=== PATIENT | male | born 1965 | race Two or more races ===

== ENCOUNTER → 2020-11-14 12:16 | Outpatient (BNVA) | payer SELFPAY | PROVIDERS: PCP Family Medicine; Visit Provider Physician Assistant Medical | DX: Z02.79 Encounter for issue of other medical certificate (principal) ==

== ENCOUNTER 2021-05-09 10:05 | Emergency (ER) | payer MEDICAID, SELFPAY ==
--- NOTE | ~2021-05-09 | XR_ITS ---
EXAMINATION: XR CHEST CLINICAL INFORMATION: Chest pain COMPARISON: None TECHNIQUE: AP portable view of the chest was obtained. FINDINGS: No significant abnormality is noted involving the heart, lungs, mediastinum, bony thorax or soft tissues. XR/XR chest 1V IMPRESSION: No acute disease.
[2021-05-09 10:15] VITALS: BP 130/92; BP 151/101; PULSE 76; PULSE 83; RESP 17; TEMP 37.1; O2SAT 97; O2SAT 98; BMI 33.3
--- NOTE | 2021-05-09 11:02 | ECG_ITS ---
Test Reason : CHEST PAIN Blood Pressure : / mmHG Vent. Rate : 075 BPM Atrial Rate : 075 BPM P-R Int : 174 ms QRS Dur : 090 ms QT Int : 392 ms P-R-T Axes : 008 024 004 degrees QTc Int : 437 ms Normal sinus rhythm Normal ECG No previous ECGs available Referred By: Generic ED Physician Electronically Signed By:TOBY FLOR MD
[2021-05-09 11:16] VITALS: BP 141/93; PULSE 69; RESP 20; O2SAT 99
[2021-05-09 11:18] LABS: MANUAL DIFF FLAG NO
[2021-05-09 11:20] LABS: Basophils Absolute Auto 0.1 X10*3/uL (0.0-0.2); Basophils Percent Auto 1.1 % (0-2); Eosinophils Absolute Auto 0.2 X10*3/uL (0.0-0.4); Eosinophils Percent Auto 3.7 % (0-4); Hematocrit 44.1 % (42-52); Imm Gran Abs Auto 0.03 X10*3/uL (0.00-0.03); Imm Gran Pct Auto 0.7 % (0.0-0.4); Lymphocytes Absolute Auto 1.5 X10*3/uL (1.2-4.9); Lymphocytes Percent Auto 33.2 % (20-40); Mean Corpuscular Hemoglobin 29.3 pg (27.0-33.0); Mean Corpuscular Volume 86.1 fL (80-98); Mean Platelet Volume 10.6 fL (9.4-12.4); Monocytes Absolute Auto 0.6 X10*3/uL (0.1-1.2); Monocytes Percent Auto 12.7 % (2-11); Neutrophils Absolute Auto 2.2 X10*3/uL (2.0-8.3); Neutrophils Percent Auto 48.6 % (45-73); Platelet Count 230 X10*3/uL (160-400); Red Blood Count 5.12 X10*6/uL (4.60-5.80); White Blood Count 4.6 X10*3/uL (4.8-10.8)
[2021-05-09 11:46] LABS: Troponin-I High Sensitivity 19.3 ng/L (<3.5-35.0)
[2021-05-09 11:48] LABS: Anion Gap 10 (12-20); Blood Urea Nitrogen 11 mg/dL (9-16); Calcium 9.4 mg/dL (8.4-10.2); Carbon Dioxide 23 mmol/L (22-29); Chloride 112 mmol/L (96-108); Creatinine Clr Calc Pharmacy 106.6; Estimated Glomerular Filt Rate > 60; Glucose Random 85 mg/dL (60-115); Sodium 141 mmol/L (135-145)
[2021-05-09 12:20] VITALS: BP 145/90; PULSE 74; RESP 20; O2SAT 99
--- NOTE | 2021-05-09 13:09 | ED.CHESTPAIN ---
HPI - Chest Pain General Chief Complaint: Chest Pain Stated Complaint: CP Time Seen by Provider: 05/09/21 12:55 Source: patient Mode of arrival: ambulatory Limitations: no limitations History of Present Illness HPI narrative: Patient presents to ED for chest pain only when he coughs, coughing, sneezing, night sweats, chills, and headache the past week. Patient states history of asthma and chest feel tight. Patient denies any swelling of lower extremities, calf pain, coughing up blood, recent long travel, recent surgery, any estrogen hormonal use. Patient was seen at the PCP today and sent to the ER for evaluation MD complaint: chest discomfort Related Data Previous Rx's Medication Instructions Recorded albuterol sulfate 2 puff INHALATION Q6H PRN #8.5 g 05/09/21 benzonatate [Tessalon Perles] 100 mg PO TID PRN #18 cap 05/09/21 prednisone 40 mg PO DAILY #10 tab 05/09/21 Allergies Allergy/AdvReac Type Severity Reaction Status Date / Time No Known Allergies Allergy Verified 05/09/21 13:00 Review of Systems Review of Systems: Yes all other systems are reviewed and are negative Constitutional: Constitutional: Reports as per HPI, Reports no additional constitutional complaints, Reports chills and Reports headache(s) Eyes: Eyes: Reports as per HPI and Reports no additional eye complaints ENT: Reports system reviewed and no additional complaints, except as documented, Reports as per HPI and Reports headache(s) Comments: Sneezing Cardiovascular: Cardiovascular: Reports as per HPI and Reports no additional cardiovascular complaints Respiratory: Respiratory: Reports as per HPI, Reports no additional respiratory complaints, Reports cough and Reports pain with cough Gastrointestinal: Gastrointestinal: Reports as per HPI and Reports no additional gastrointestinal complaints Musculoskeletal: Musculoskeletal: Reports no additional musculoskeletal complaints and Reports as per HPI Neurologic: Reports system reviewed and no additional complaints, except as documented, Reports as per HPI and Reports headache(s) Psychiatric: Psychiatric: Reports no additional psychiatric complaints and Reports as per HPI PMF Past Medical History Medical History (Updated 05/09/21 @ 16:37 by EDIL Barraza) Acid reflux Asthma HTN (hypertension) Social History Social History Smoked in Last 30 Days: No Use of substances other than those prescribed or required for medical reasons: No Advance Directives: Yes Advance Directives Information Provided: No Advance Directives on File: No Physical Exam Vital Signs: Vital Signs: Last Vital Signs Temp 99.1 F 05/09/21 15:50 Pulse 77 05/09/21 15:50 Resp 18 05/09/21 15:50 BP 130/76 05/09/21 15:50 Pulse Ox 97 05/09/21 15:50 Body Mass Index 33.3 Const: General: cooperative, healthy appearing, comfortable, no acute distress, well developed, alert, awake and Physically active Orientation/consciousness: patient oriented x3 HENMT: Head: Yes normal to inspection, Yes No palpable skull fracture present, Yes normocephalic and Yes atraumatic Eyes: General: appearance normal, both eyes and all related structures Neck: Neck: Yes normal visual inspection, Yes full ROM, Yes no lymphadenopathy, Yes no meningeal signs, Yes trachea midline, Yes supple and No tender Chest: Chest palpation & inspection: normal inspection of the chest and normal palpation of entire chest wall Resp: Effort & Inspection: normal respiratory effort and able to speak in complete sentences Auscultation: clear to auscultation bilaterally Cardio: Jugular venous distension: no JVD Heart sounds: S1 normal heart sound present and S2 normal heart sound present GI: Inspection: Yes normal to inspection and No abdominal wall ecchymosis Palpation (GI): Soft to palpation, not firm, nontender, no guarding and not rigid : General: No CVA tenderness and Yes no CVA tenderness Back/Spine/Pelvis: Back: no CVA tenderness, No CVA tenderness and No back tenderness Skin: General skin exam: no rashes or lesions noted and abnormal elasticity Neuro: General: patient oriented x3, gait normal, no meningeal signs and CN's II-XI intact bilaterally Cranial nerves: Yes CN's II-XII intact bilaterally Extrem: Other: Lower extremities negative for swelling, pitting edema, calf tenderness General: Yes normal to inspection and Yes full ROM Psych: Appearance: grossly normal, well kempt and not disheveled Course Course Course Narrative: Patient have medical workup. Patient already SUJEY. Reevaluation(s) Reevaluation #1: EKG negative for STEMI. Troponin negative. Will add BNP. Patient said receive COVID vaccine 2 weeks ago for not having UR symptoms will do COVID swab had a D-dimer. Will do repeat troponin and give albuterol and prednisone. Patient is not in any distress. Patient is not comfortable Time: 13:42 Reevaluation #2: PATIENT FEELING BETTER AFTER ALBUTEROL PREDNISONE TREATMENT. D-DIMER NEGATIVE. COVID SWAB NEGATIVE. BNP NEGATIVE. AWAITING FOR 2ND TROPONIN RESULT. BNP negative Time: 22:32 Reevaluation #3: Patient's 2nd troponin negative. Patient ready to be discharged as bronchitis/asthma Time: 16:34 MDM - Chest Pain MDM Narrative Medical decision making narrative: Bronchitis/asthma exacerbation Lab Data Result diagrams: 05/09/21 11:15 05/09/21 11:15 Labs: Lab Results 05/09/21 05/09/21 05/09/21 Range/Units 11:15 11:15 11:15 WBC 4.6 L (4.8-10.8) X10*3/uL RBC 5.12 (4.60-5.80) X10*6/uL Hgb 15.0 (14.0-18.0) g/dl Hct 44.1 (42-52) % MCV 86.1 (80-98) fL MCH 29.3 (27.0-33.0) pg MCHC 34.0 (31.0-36.0) g/dl RDW 13.0 (11.0-16.0) % Plt Count 230 (160-400) X10*3/uL MPV 10.6 (9.4-12.4) fL Immature Gran % (Auto) 0.7 H (0.0-0.4) % Neut % (Auto) 48.6 (45-73) % Lymph % (Auto) 33.2 (20-40) % [place] % (Auto) 12.7 H (2-11) % Eos % (Auto) 3.7 (0-4) % Baso % (Auto) 1.1 (0-2) % Lymph # (Auto) 1.5 (1.2-4.9) X10*3/uL [place] # (Auto) 0.6 (0.1-1.2) X10*3/uL Eos # (Auto) 0.2 (0.0-0.4) X10*3/uL Baso # (Auto) 0.1 (0.0-0.2) X10*3/uL Abs Immat Gran (auto) 0.03 (0.00-0.03) X10*3/uL Absolute Neuts (auto) 2.2 (2.0-8.3) X10*3/uL Absolute Nucleated RBC 0.000 (0.0-0.012) X10*3/uL Nucleated RBC % (auto) 0.0 (0.0-0.2) /100WBC PT 12.4 (10.8-13.0) SEC INR 1.0 (0.9-1.1) APTT 38.1 H (24.1-38.0) SEC D-Dimer < 200 NG/ML Hold Blue Top SEE NOTE Sodium 141 (135-145) mmol/L Potassium 4.0 (3.3-5.1) mmol/L Chloride 112 H (96-108) mmol/L Carbon Dioxide 23 (22-29) mmol/L Anion Gap 10 L (12-20) BUN 11 (9-16) mg/dL Creatinine 0.82 (0.5-1.4) mg/dL Estim Creat Clear Calc 106.6 Estimated GFR > 60 Random Glucose 85 (60-115) mg/dL Calcium 9.4 (8.4-10.2) mg/dL Troponin I High Sens (<3.5-35.0) ng/L B-Natriuretic Peptide (<100) pg/mL Coronavirus (PCR) (Negative) Influenza Type A (PCR) (Negative) Influenza Type B (PCR) (Negative) RSV RNA Qual (PCR) (Negative) 05/09/21 05/09/21 05/09/21 Range/Units 11:15 13:12 14:33 WBC (4.8-10.8) X10*3/uL RBC (4.60-5.80) X10*6/uL Hgb (14.0-18.0) g/dl Hct (42-52) % MCV (80-98) fL MCH (27.0-33.0) pg MCHC (31.0-36.0) g/dl RDW (11.0-16.0) % Plt Count (160-400) X10*3/uL MPV (9.4-12.4) fL Immature Gran % (Auto) (0.0-0.4) % Neut % (Auto) (45-73) % Lymph % (Auto) (20-40) % [place] % (Auto) (2-11) % Eos % (Auto) (0-4) % Baso % (Auto) (0-2) % Lymph # (Auto) (1.2-4.9) X10*3/uL [place] # (Auto) (0.1-1.2) X10*3/uL Eos # (Auto) (0.0-0.4) X10*3/uL Baso # (Auto) (0.0-0.2) X10*3/uL Abs Immat Gran (auto) (0.00-0.03) X10*3/uL Absolute Neuts (auto) (2.0-8.3) X10*3/uL Absolute Nucleated RBC (0.0-0.012) X10*3/uL Nucleated RBC % (auto) (0.0-0.2) /100WBC PT (10.8-13.0) SEC INR (0.9-1.1) APTT (24.1-38.0) SEC D-Dimer NG/ML Hold Blue Top Sodium (135-145) mmol/L Potassium (3.3-5.1) mmol/L Chloride (96-108) mmol/L Carbon Dioxide (22-29) mmol/L Anion Gap (12-20) BUN (9-16) mg/dL Creatinine (0.5-1.4) mg/dL Estim Creat Clear Calc Estimated GFR Random Glucose (60-115) mg/dL Calcium (8.4-10.2) mg/dL Troponin I High Sens 19.3 19.3 (<3.5-35.0) ng/L B-Natriuretic Peptide < 10 (<100) pg/mL Coronavirus (PCR) NEGATIVE (Negative) Influenza Type A (PCR) NEGATIVE (Negative) Influenza Type B (PCR) NEGATIVE (Negative) RSV RNA Qual (PCR) NEGATIVE (Negative) ECG Data ECG #1: Interpretation: Normal sinus rhythm. Normal EKG. Negative STEMI. Reticular rate 75. Pr interval 174. QRS 90. QTC 437. Discharge Plan Discharge Clinical Impression: Asthma Patient Disposition: Home, Self-Care Instructions: Asthma (ED) Additional Instructions: Return to the ED for any chest pain, shortness of breath, swelling of lower extremities, calf pain, coughing up blood, fever, chills, weakness, dizziness, headache, slurred speech, or any other concerning symptoms. Please follow-up with the PCP. EKG negative for heart attack. Troponin blood test came back normal. D-dimer came back negative. Chest x-ray negative for pneumonia. COVID swab negative. Blood, normal. Please follow-up with your PCP Prescriptions: New albuterol sulfate 90 mcg/actuation HFA aerosol inhaler 2 puff inhalation Q6H PRN (Reason: asthma) Qty: 8.5 RF: 0 prednisone 20 mg tablet 40 mg PO DAILY Qty: 10 RF: 0 benzonatate [Tessalon Perles] 100 mg capsule 100 mg PO TID PRN (Reason: cough) Qty: 18 RF: 0 Stand Alone Forms: Work/School Release Interventions: ED Discharge Assessment Last Done: 05/09/21 16:44 Discharge Date/Time: 05/09/21 16:47 Print Language: Hungarian
[2021-05-09 13:26] LABS: Prothrombin Time 12.4 SEC (10.8-13.0)
[2021-05-09 13:28] LABS: Partial Thromboplastin Time 38.1 SEC (24.1-38.0)
[2021-05-09] MEDS: predniSONE 20 MG TABLET 60 MG PO (13:35)
[2021-05-09 13:39] VITALS: BP 140/89; PULSE 70; RESP 18; TEMP 37.4; O2SAT 98
[2021-05-09 13:41] LABS: B Type Natriuretic Peptide < 10 pg/mL (<100)
[2021-05-09 13:56] LABS: D Dimer < 200 NG/ML
[2021-05-09 13:58] LABS: Influenza A PCR NEGATIVE (Negative); Influenza B PCR NEGATIVE (Negative); Resp Syncy Virus RNA Qual PCR NEGATIVE (Negative); SARS COV2 PCR INHOUSE NEGATIVE (Negative)
[2021-05-09] MEDS: Albuterol/Iprat 2.5/0.5MG 3 ML AMPUL.NEB INHALE (14:04)
[2021-05-09 14:05] VITALS: PULSE 71; O2SAT 98
[2021-05-09 15:13] LABS: Troponin-I High Sensitivity 19.3 ng/L (<3.5-35.0)
[2021-05-09 15:50] VITALS: BP 130/76; PULSE 77; RESP 18; TEMP 37.3; O2SAT 97
== END 2021-05-09 16:47 | disposition home or self-care (01) ==
PROVIDERS: Physician Assistant; Emergency Provider Emergency Medicine Emergency Medical Services
DX: J45.909 Unspecified asthma, uncomplicated (principal); R07.9 Chest pain, unspecified; Z20.822 Contact with and (suspected) exposure to COVID-19; I10 Essential (primary) hypertension
CPT/HCPCS: 0241U; 36415; 71045; 80048; 83880; 84484; 85025; 85379; 85610; 85730; 93005; 94640; 99284; 99285

== ENCOUNTER 2021-10-01 16:15 | Observation (INO) | payer MEDICAID, SELFPAY ==
[2021-10-01] VITALS (7 sets, daily range): BP systolic 135–152; BP diastolic 80–93; PULSE 86–108; RESP 14–20; TEMP 36.3–36.9; O2SAT 96–98; BMI 34.1; BMI 34.6
--- NOTE | 2021-10-01 16:28 | ED.CHESTPAIN ---
HPI - Chest Pain General Chief Complaint: Chest Pain Stated Complaint: chest pain Time Seen by Provider: 10/01/21 16:23 Related Data Home Medications Medication Instructions Recorded Confirmed amitriptyline 25 mg tablet 1 tab PO BEDTIME PRN 10/01/21 10/01/21 escitalopram oxalate 5 mg tablet 1 tab PO DAILY 10/01/21 10/01/21 lisinopril 10 1 tab PO DAILY 10/01/21 10/01/21 mg-hydrochlorothiazide 12.5 mg tablet pantoprazole 40 mg tablet,delayed 1 tab PO DAILY 10/01/21 10/01/21 release Previous Rx's Medication Instructions Recorded albuterol sulfate 90 mcg/actuation 2 puff INHALATION Q6H PRN #8.5 g 05/09/21 aerosol inhaler Allergies Allergy/AdvReac Type Severity Reaction Status Date / Time No Known Allergies Allergy Verified 05/09/21 13:00 [facility] Past Medical History Medical History Acid reflux Asthma HTN (hypertension) Social History Social History Household Members: Family Housing: House Do you presently have visiting nurse or other home services: No Alcohol intake: never Patient Tobacco Use Status: Former Tobacco user Use of substances other than those prescribed or required for medical reasons: No Have you been hit, kicked, punched, or otherwise hurt by someone within the past year? If so, by whom?: No Do you feel safe in your current relationship?: Yes Is there a partner from a previous relationship who is making you feel unsafe now?: No Are you made to feel afraid or neglected: No Advance Directives: No Advance Directives Information Provided: No Do you have thoughts of harming others: None Do you have a plan to hurt others: No Plan Recently lost weight without trying: Yes How much weight loss: 2-13 pounds Eating poorly because of decreased appetite: No Nutrition screen score: 3 Nutrition Risks: No Nutritional Risk Poor oral hygiene: No Physical Exam Vital Signs: Vital Signs: Last Vital Signs Temp 97.4 F 10/01/21 23:03 Pulse 95 10/01/21 23:03 Resp 18 10/01/21 23:03 BP 138/83 10/01/21 23:03 Pulse Ox 96 10/01/21 23:03 Body Mass Index 34.1 MDM - Chest Pain Lab Data Result diagrams: 10/01/21 17:03 10/01/21 17:03 Labs: Lab Results 10/01/21 10/01/21 10/01/21 Range/Units 17:03 17:03 17:03 WBC 5.5 (4.8-10.8) X10*3/uL RBC 4.95 (4.60-5.80) X10*6/uL Hgb 14.8 (14.0-18.0) g/dl Hct 42.7 (42.0-52.0) % MCV 86.3 (80.0-98.0) fL MCH 29.9 (27.0-33.0) pg MCHC 34.7 (31.0-36.0) g/dl RDW 12.4 (11.0-16.0) % Plt Count 218 (160-400) X10*3/uL MPV 10.3 (9.4-12.4) fL Immature Gran % (Auto) 0.4 (0.0-0.4) % Neut % (Auto) 59.7 (45-73) % Lymph % (Auto) 30.2 (20-40) % [place] % (Auto) 7.9 (2-11) % Eos % (Auto) 1.3 (0-4) % Baso % (Auto) 0.5 (0-2) % Lymph # (Auto) 1.7 (1.2-4.9) X10*3/uL [place] # (Auto) 0.4 (0.1-1.2) X10*3/uL Eos # (Auto) 0.1 (0.0-0.4) X10*3/uL Baso # (Auto) 0.0 (0.0-0.2) X10*3/uL Abs Immat Gran (auto) 0.02 (0.00-0.03) X10*3/uL Absolute Neuts (auto) 3.26 (2.0-8.3) x10*3/uL Absolute Nucleated RBC 0.000 (0.0-0.012) X10*3/uL Nucleated RBC % (auto) 0.0 (0.0-0.2) /100WBC PT (9.9-13.0) SEC INR (0.9-1.1) D-Dimer NG/ML Sodium 141 (135-145) mmol/L Potassium 4.0 (3.3-5.1) mmol/L Chloride 110 H (96-108) mmol/L Carbon Dioxide 23 (22-29) mmol/L Anion Gap 12 (12-20) BUN 13 (9-16) mg/dL Creatinine 0.88 (0.5-1.4) mg/dL Estim Creat Clear Calc 100.5 Estimated GFR > 60 Random Glucose 83 (60-115) mg/dL Calcium 9.2 (8.4-10.2) mg/dL Total Bilirubin 0.4 (0.0-1.0) mg/dL AST 18 (5-37) U/L ALT 25 (0-40) U/L Alkaline Phosphatase 99 (39-117) U/L Troponin I High Sens 20.3 (<3.5-35.0) ng/L Total Protein 6.8 (6.5-8.0) g/dL Albumin 4.3 (3.5-5.0) g/dL COVID-19 ([facility]) (Negative) COVID-19 Clin Com 10/01/21 10/01/21 10/01/21 Range/Units 17:03 17:03 19:05 WBC (4.8-10.8) X10*3/uL RBC (4.60-5.80) X10*6/uL Hgb (14.0-18.0) g/dl Hct (42.0-52.0) % MCV (80.0-98.0) fL MCH (27.0-33.0) pg MCHC (31.0-36.0) g/dl RDW (11.0-16.0) % Plt Count (160-400) X10*3/uL MPV (9.4-12.4) fL Immature Gran % (Auto) (0.0-0.4) % Neut % (Auto) (45-73) % Lymph % (Auto) (20-40) % [place] % (Auto) (2-11) % Eos % (Auto) (0-4) % Baso % (Auto) (0-2) % Lymph # (Auto) (1.2-4.9) X10*3/uL [place] # (Auto) (0.1-1.2) X10*3/uL Eos # (Auto) (0.0-0.4) X10*3/uL Baso # (Auto) (0.0-0.2) X10*3/uL Abs Immat Gran (auto) (0.00-0.03) X10*3/uL Absolute Neuts (auto) (2.0-8.3) x10*3/uL Absolute Nucleated RBC (0.0-0.012) X10*3/uL Nucleated RBC % (auto) (0.0-0.2) /100WBC PT 12.8 (9.9-13.0) SEC INR 1.1 (0.9-1.1) D-Dimer < 200 NG/ML Sodium (135-145) mmol/L Potassium (3.3-5.1) mmol/L Chloride (96-108) mmol/L Carbon Dioxide (22-29) mmol/L Anion Gap (12-20) BUN (9-16) mg/dL Creatinine (0.5-1.4) mg/dL Estim Creat Clear Calc Estimated GFR Random Glucose (60-115) mg/dL Calcium (8.4-10.2) mg/dL Total Bilirubin (0.0-1.0) mg/dL AST (5-37) U/L ALT (0-40) U/L Alkaline Phosphatase (39-117) U/L Troponin I High Sens 17.2 (<3.5-35.0) ng/L Total Protein (6.5-8.0) g/dL Albumin (3.5-5.0) g/dL COVID-19 ([facility]BERLY) Negative (Negative) COVID-19 Clin Com See Note Discharge Plan Discharge Clinical Impression: Chest pain Patient Disposition: Admitted As Inpatient Interventions: Admission Worksheet (ED) Last Done: 10/01/21 22:15 Discharge Date/Time: 10/01/21 22:15
--- NOTE | 2021-10-01 16:44 | ED.CHESTPAIN ---
HPI - Chest Pain General Chief Complaint: Chest Pain Stated Complaint: chest pain Time Seen by Provider: 10/01/21 16:23 Source: patient and old records reviewed History of Present Illness HPI narrative: Patient with a history of hypertension and obesity with BMI of 34.1 complaining of chest pain which started today. He typically takes amlodipine and lisinopril for his high blood pressure but ran out. Last dose was yesterday. Today after waking up he developed substernal pressure. It radiates to his back. No change with movement. Positive dyspnea on exertion. He was diaphoretic in his physician office. He with his PCP office today and he was sent to the emergency department after receiving nitroglycerin and aspirin. He states he is not had a history of chest pain like this before. He was seen for chest pain in April, but that was associated with an asthma exacerbation and was sharp in hurt when he breathes. This time it is pressure-like sensation and no change with inspiration. He denies asthma like symptoms. He does complain of dyspnea on exertion which is unusual. No recent illnesses. No change in diet or medication other than running out of his antihypertensives yesterday. His last LDL cholesterol was 124 No other significant cardiac risk factors in that he does not have a family history of cardiac disease. He is not a smoker. No cocaine use disorder. After nitroglycerin from his PCP office, he states the pain improved slightly from a 6 down to a 5. Related Data Previous Rx's Medication Instructions Recorded albuterol sulfate 90 mcg/actuation 2 puff INHALATION Q6H PRN #8.5 g 05/09/21 aerosol inhaler benzonatate 100 mg capsule 100 mg PO TID PRN #18 cap 05/09/21 ([facility] Klein) prednisone 20 mg tablet 40 mg PO DAILY #10 tab 05/09/21 Allergies Allergy/AdvReac Type Severity Reaction Status Date / Time No Known Allergies Allergy Verified 05/09/21 13:00 Review of Systems Constitutional: Comments: No fevers or chills Cardiovascular: Comments: Chest pain is described Respiratory: Comments: Dyspnea as described. No wheezes or cough Gastrointestinal: Comments: No nausea vomiting Musculoskeletal: Comments: No calf pain or pedal edema Integumentary/Breasts: Comments: No rash Neurologic: Comments: No weakness numbness or paresthesias [facility] Past Medical History Medical History (Updated 10/01/21 @ 17:46 by Jerson Davison MD) Acid reflux Asthma HTN (hypertension) Social History Social History Advance Directives: No Advance Directives Information Provided: No Physical Exam Vital Signs: Vital Signs: Last Vital Signs Temp 97.8 F 10/01/21 16:27 Pulse 86 10/01/21 17:30 Resp 14 10/01/21 16:27 BP 136/87 10/01/21 17:30 Pulse Ox 98 10/01/21 16:27 Body Mass Index 34.1 Const: Other: Awake and alert no acute distress Neck: Other: No JVD Chest: Other: Chest wall nontender Resp: Other: Clear and equal bilaterally without wheezes rales or rhonchi Cardio: Other: Regular rate and rhythm without murmurs rubs or gallops GI: Other: Soft nontender nondistended Skin: Other: Warm pink and dry. No diaphoresis at the moment Neuro: Other: No focal neuro deficits Course Course Course Narrative: Chest pain with a Heart score of 4 secondary to risk factors of hypertension, obesity, hypercholesterolemia. EKG normal sinus rhythm without ischemic changes. Patient is already received aspirin prior to arrival. Will treat here with nitroglycerin ointment. Morphine for pain Await labs 5:45 p.m.. Patient now pain free after medication. Repeat EKG ordered. Lab work is so far reassuring with his 1st troponin at 20. Given heart score of 4, will hospitalized for further workup MDM - Chest Pain Lab Data Result diagrams: 10/01/21 17:03 10/01/21 17:03 Labs: Lab Results 10/01/21 10/01/21 10/01/21 Range/Units 17:03 17:03 17:03 WBC 5.5 (4.8-10.8) X10*3/uL RBC 4.95 (4.60-5.80) X10*6/uL Hgb 14.8 (14.0-18.0) g/dl Hct 42.7 (42.0-52.0) % MCV 86.3 (80.0-98.0) fL MCH 29.9 (27.0-33.0) pg MCHC 34.7 (31.0-36.0) g/dl RDW 12.4 (11.0-16.0) % Plt Count 218 (160-400) X10*3/uL MPV 10.3 (9.4-12.4) fL Immature Gran % (Auto) 0.4 (0.0-0.4) % Neut % (Auto) 59.7 (45-73) % Lymph % (Auto) 30.2 (20-40) % [place] % (Auto) 7.9 (2-11) % Eos % (Auto) 1.3 (0-4) % Baso % (Auto) 0.5 (0-2) % Lymph # (Auto) 1.7 (1.2-4.9) X10*3/uL [place] # (Auto) 0.4 (0.1-1.2) X10*3/uL Eos # (Auto) 0.1 (0.0-0.4) X10*3/uL Baso # (Auto) 0.0 (0.0-0.2) X10*3/uL Abs Immat Gran (auto) 0.02 (0.00-0.03) X10*3/uL Absolute Neuts (auto) 3.26 (2.0-8.3) x10*3/uL Absolute Nucleated RBC 0.000 (0.0-0.012) X10*3/uL Nucleated RBC % (auto) 0.0 (0.0-0.2) /100WBC PT (9.9-13.0) SEC INR (0.9-1.1) D-Dimer NG/ML Sodium 141 (135-145) mmol/L Potassium 4.0 (3.3-5.1) mmol/L Chloride 110 H (96-108) mmol/L Carbon Dioxide 23 (22-29) mmol/L Anion Gap 12 (12-20) BUN 13 (9-16) mg/dL Creatinine 0.88 (0.5-1.4) mg/dL Estim Creat Clear Calc 100.5 Estimated GFR > 60 Random Glucose 83 (60-115) mg/dL Calcium 9.2 (8.4-10.2) mg/dL Total Bilirubin 0.4 (0.0-1.0) mg/dL AST 18 (5-37) U/L ALT 25 (0-40) U/L Alkaline Phosphatase 99 (39-117) U/L Troponin I High Sens 20.3 (<3.5-35.0) ng/L Total Protein 6.8 (6.5-8.0) g/dL Albumin 4.3 (3.5-5.0) g/dL COVID-19 ([facility]) (Negative) COVID-19 Clin Com 10/01/21 10/01/21 Range/Units 17:03 17:03 WBC (4.8-10.8) X10*3/uL RBC (4.60-5.80) X10*6/uL Hgb (14.0-18.0) g/dl Hct (42.0-52.0) % MCV (80.0-98.0) fL MCH (27.0-33.0) pg MCHC (31.0-36.0) g/dl RDW (11.0-16.0) % Plt Count (160-400) X10*3/uL MPV (9.4-12.4) fL Immature Gran % (Auto) (0.0-0.4) % Neut % (Auto) (45-73) % Lymph % (Auto) (20-40) % [place] % (Auto) (2-11) % Eos % (Auto) (0-4) % Baso % (Auto) (0-2) % Lymph # (Auto) (1.2-4.9) X10*3/uL [place] # (Auto) (0.1-1.2) X10*3/uL Eos # (Auto) (0.0-0.4) X10*3/uL Baso # (Auto) (0.0-0.2) X10*3/uL Abs Immat Gran (auto) (0.00-0.03) X10*3/uL Absolute Neuts (auto) (2.0-8.3) x10*3/uL Absolute Nucleated RBC (0.0-0.012) X10*3/uL Nucleated RBC % (auto) (0.0-0.2) /100WBC PT 12.8 (9.9-13.0) SEC INR 1.1 (0.9-1.1) D-Dimer < 200 NG/ML Sodium (135-145) mmol/L Potassium (3.3-5.1) mmol/L Chloride (96-108) mmol/L Carbon Dioxide (22-29) mmol/L Anion Gap (12-20) BUN (9-16) mg/dL Creatinine (0.5-1.4) mg/dL Estim Creat Clear Calc Estimated GFR Random Glucose (60-115) mg/dL Calcium (8.4-10.2) mg/dL Total Bilirubin (0.0-1.0) mg/dL AST (5-37) U/L ALT (0-40) U/L Alkaline Phosphatase (39-117) U/L Troponin I High Sens (<3.5-35.0) ng/L Total Protein (6.5-8.0) g/dL Albumin (3.5-5.0) g/dL COVID-19 ([facility]) Negative (Negative) COVID-19 Clin Com See Note Scores Heart Score History: -1- moderately suspicious ECG: -0- normal Age: -1- >45 - <65 Risk factory: -2- 3 or more risk factors or treated atherosclerosis Discharge Plan Discharge Patient Disposition: Admitted As Inpatient Prescriptions: No Action albuterol sulfate 90 mcg/actuation HFA aerosol inhaler 2 puff inhalation Q6H PRN (Reason: asthma) Qty: 8.5 RF: 0 prednisone 20 mg tablet 40 mg PO DAILY Qty: 10 RF: 0 benzonatate [Tessalon Perles] 100 mg capsule 100 mg PO TID PRN (Reason: cough) Qty: 18 RF: 0
--- NOTE | 2021-10-01 17:03 | PC.NURSE ---
iv inserted, labs drawn, ekg performed, environmental monitoring specialist applied
[2021-10-01 17:09] LABS: MANUAL DIFF FLAG NO
[2021-10-01 17:11] LABS: Basophils Percent Auto 0.5 % (0-2); Eosinophils Absolute Auto 0.1 X10*3/uL (0.0-0.4); Eosinophils Percent Auto 1.3 % (0-4); Hematocrit 42.7 % (42.0-52.0); Hemoglobin 14.8 g/dl (14.0-18.0); Imm Gran Abs Auto 0.02 X10*3/uL (0.00-0.03); Imm Gran Pct Auto 0.4 % (0.0-0.4); Lymphocytes Absolute Auto 1.7 X10*3/uL (1.2-4.9); Lymphocytes Percent Auto 30.2 % (20-40); Mean Corpuscular HGB Conc 34.7 g/dl (31.0-36.0); Mean Corpuscular Hemoglobin 29.9 pg (27.0-33.0); Mean Corpuscular Volume 86.3 fL (80.0-98.0); Mean Platelet Volume 10.3 fL (9.4-12.4); Monocytes Absolute Auto 0.4 X10*3/uL (0.1-1.2); Monocytes Percent Auto 7.9 % (2-11); Neutrophils Absolute Auto 3.26 x10*3/uL (2.0-8.3); Neutrophils Percent Auto 59.7 % (45-73); Platelet Count 218 X10*3/uL (160-400); Red Blood Count 4.95 X10*6/uL (4.60-5.80); Red Cell Distribution Width 12.4 % (11.0-16.0); White Blood Count 5.5 X10*3/uL (4.8-10.8)
[2021-10-01 17:16] LABS: INTERNATIONAL NORM RATIO 1.1 (0.9-1.1); Prothrombin Time 12.8 SEC (9.9-13.0)
[2021-10-01 17:22] LABS: D Dimer < 200 NG/ML
[2021-10-01] MEDS: Morphine Sulfate 4 MG/ML CARTRIDGE IVPUSH (17:28)
[2021-10-01] MEDS: Nitroglycerin 2 % Oint 1 GM Packet 1 INCH TRANSDERMA (17:29)
[2021-10-01 17:30] LABS: Alanine Aminotransferase 25 U/L (0-40); Albumin Level 4.3 g/dL (3.5-5.0); Alkaline Phosphatase 99 U/L (39-117); Anion Gap 12 (12-20); Aspartate Amino Transferase 18 U/L (5-37); Bilirubin Total 0.4 mg/dL (0.0-1.0); Blood Urea Nitrogen 13 mg/dL (9-16); COVID-19 Test Negative (Negative); Calcium 9.2 mg/dL (8.4-10.2); Carbon Dioxide 23 mmol/L (22-29); Chloride 110 mmol/L (96-108); Creatinine Clr Calc Pharmacy 100.5; Estimated Glomerular Filt Rate > 60; Glucose Random 83 mg/dL (60-115); Sodium 141 mmol/L (135-145); Total Protein 6.8 g/dL (6.5-8.0)
[2021-10-01] MEDS: amLODIPine Besylate 10 MG TABLET PO (17:30)
[2021-10-01] MEDS: lisinopriL 10 MG TABLET PO (17:30)
--- NOTE | 2021-10-01 17:30 | PC.NURSE ---
patient medicated per order
[2021-10-01 17:33] LABS: Troponin-I High Sensitivity 20.3 ng/L (<3.5-35.0)
--- NOTE | 2021-10-01 17:44 | ECG_ITS ---
Test Reason : CHEST PAIN Blood Pressure : / mmHG Vent. Rate : 088 BPM Atrial Rate : 088 BPM P-R Int : 168 ms QRS Dur : 106 ms QT Int : 378 ms P-R-T Axes : 014 030 -10 degrees QTc Int : 457 ms Normal sinus rhythm Nonspecific T wave abnormality Abnormal ECG When compared with ECG of 09-MAY-2021 11:08, T wave inversion more evident in Inferior leads Referred By: Jerson Davison Electronically Signed By:BRANDON COX MD
[2021-10-01 19:29] LABS: Troponin-I High Sensitivity 17.2 ng/L (<3.5-35.0)
--- NOTE | 2021-10-01 19:31 | PHA.MEDREC ---
Pharmacy Consult ? Medication Reconciliation Pharmacy has completed the medication reconciliation. Patient has a paper that reports he takes amlodipine and lisinopril. Per the claim history patient is taking lisinopril-HCTZ that was last filled 08/28/2021 x 30 days. He reports he was suppose to get a refill of all his medications at [facility] but was sent here instead. Sumaya Aguirre, DerekD
--- NOTE | 2021-10-01 20:13 | P.HPHOSP_ITS ---
History of Present Illness Date of Service: 10/01/21 Chief Complaint: chest pain 55-year-old male with past medical history of hypertension, asthma and GERD presents to the hospital with complaints of chest pain. Patient reports that the pain started in the morning, midsternal, radiating to the back, 7/10, heavy/ squeezing in sensation, constant, occurred while he was visiting his doctor's office, improved with nitro and morphine, not relieved by rest, no exacerbating factors. Associated with palpitations and some shortness of breath as well as diaphoresis. Patient also developed a slight headache but has not resolved. Denies any cough, sputum production, no fever or chills, no abdominal pain nausea or vomiting, he denies any urinary symptoms and no lower extremity edema. No numbness with tingling or weakness. No significant abnormal vitals Labs are significant for troponin of 20 that decreased to 17.2 with no other significant abnormalities, EKG shows normal sinus rhythm with no significant ST T wave abnormality except for a T-wave inversion in leads III otherwise no significant change when compared to previous EKG from April Given the typical nature of his chest pain patient will be admitted for observation Review of Systems Review of Systems: Yes all other systems are reviewed and are negative [facility] Medical History Acid reflux Asthma HTN (hypertension) Pertinent family history: Patient has been in foster care and does not know his biological parents Surgical History (Updated 10/02/21 @ 05:55 by Jose Manuel Christy MD) No pertinent past surgical history Social History Household Members: Family Housing: House Do you presently have visiting nurse or other home services: No Alcohol intake: never Patient Tobacco Use Status: Former Tobacco user Use of substances other than those prescribed or required for medical reasons: No Currently Displaying Signs/Symptoms of Drug Intoxication Withdrawal: No Have you been hit, kicked, punched, or otherwise hurt by someone within the past year? If so, by whom?: No Do you feel safe in your current relationship?: Yes Is there a partner from a previous relationship who is making you feel unsafe now?: No Are you made to feel afraid or neglected: No Advance Directives: No Advance Directives Information Provided: No Do you have thoughts of harming others: None Do you have a plan to hurt others: No Plan Recently lost weight without trying: Yes How much weight loss: 2-13 pounds Eating poorly because of decreased appetite: No Nutrition screen score: 3 Nutrition Risks: No Nutritional Risk Poor oral hygiene: No Meds Allergies Allergy/AdvReac Type Severity Reaction Status Date / Time No Known Allergies Allergy Verified 05/09/21 13:00 Active Medications: Current Medications Pharmacy Consult (Consult Rx Perform Med Rec) 1 each MISCELLANE ONCE PRN PRN Reason: Consult order Home Medications Medication Instructions Recorded Confirmed Last Taken Type amitriptyline 25 mg tablet 1 tab PO BEDTIME PRN 10/01/21 10/01/21 Unknown History escitalopram oxalate 5 mg tablet 1 tab PO DAILY 10/01/21 10/01/21 Unknown History lisinopril 10 1 tab PO DAILY 10/01/21 10/01/21 Unknown History mg-hydrochlorothiazide 12.5 mg tablet pantoprazole 40 mg tablet,delayed 1 tab PO DAILY 10/01/21 10/01/21 Unknown History release Physical Exam Vital Signs and Narrative: Vital Signs: Last Vital Signs Temp 98.4 F 10/01/21 18:05 Pulse 88 10/01/21 18:05 Resp 16 10/01/21 18:05 BP 139/85 10/01/21 18:05 Pulse Ox 98 10/01/21 18:05 Body Mass Index 34.1 Const: General: cooperative and no acute distress Orientation/consc iousness: patient oriented x3 Eyes: General: appearance normal, both eyes and all related structures Resp: Effort & Inspection: normal respiratory effort Auscultation: clear to auscultation bilaterally Cardio: Rate: regular rate Rhythm: regular rhythm GI: Palpation (GI): Soft to palpation Auscultation: normal bowel sounds Skin: General skin exam: no rashes or lesions noted Neuro: General: patient oriented x3 Cognition (Neuro): normal cognition Extrem: General: Yes normal to inspection and Yes no pedal edema Results Labs CBC and Chem 7: 10/01/21 17:03 10/01/21 17:03 Labs: Laboratory Results - last 24 hr 10/01/21 10/01/21 10/01/21 17:03 17:03 17:03 MCV 86.3 MCH 29.9 MCHC 34.7 RDW 12.4 Plt Count 218 MPV 10.3 Immature Gran % (Auto) 0.4 Neut % (Auto) 59.7 Lymph % (Auto) 30.2 [place] % (Auto) 7.9 Eos % (Auto) 1.3 Baso % (Auto) 0.5 Lymph # (Auto) 1.7 [place] # (Auto) 0.4 Eos # (Auto) 0.1 Baso # (Auto) 0.0 Abs Immat Gran (auto) 0.02 Absolute Neuts (auto) 3.26 Absolute Nucleated RBC 0.000 Nucleated RBC % (auto) 0.0 PT INR D-Dimer Anion Gap 12 Estim Creat Clear Calc 100.5 Estimated GFR > 60 Random Glucose 83 Calcium 9.2 Total Bilirubin 0.4 AST 18 ALT 25 Alkaline Phosphatase 99 Troponin I High Sens 20.3 Total Protein 6.8 Albumin 4.3 COVID-19 ([facility]) COVID-19 [employer] Com 10/01/21 10/01/21 10/01/21 17:03 17:03 19:05 MCV MCH MCHC RDW Plt Count MPV Immature Gran % (Auto) Neut % (Auto) Lymph % (Auto) [place] % (Auto) Eos % (Auto) Baso % (Auto) Lymph # (Auto) [place] # (Auto) Eos # (Auto) Baso # (Auto) Abs Immat Gran (auto) Absolute Neuts (auto) Absolute Nucleated RBC Nucleated RBC % (auto) PT 12.8 INR 1.1 D-Dimer < 200 Anion Gap Estim Creat Clear Calc Estimated GFR Random Glucose Calcium Total Bilirubin AST ALT Alkaline Phosphatase Troponin I High Sens 17.2 Total Protein Albumin COVID-19 ([facility]) Negative COVID-19 Clin Com See Note Assessment and Plan (1) Chest pain: Status: Acute 55-year-old male with past medical history of hypertension who presents to the hospital with complaints of chest pain # chest pain - has typical characteristics of cardiac pain - troponin negative - no EKG changes suggestive of ACS - heart score of 4 - Risk factors for cardiac disease include hypertension, obesity, hyperlipidemia - will admit to telemetry for observation - consult Cardiology for any further recommendation # hypertension - stable - continue lisinopril/hydrochlorothiazide # GERD - continue pantoprazole # asthma - stable - continue rescue inhaler DVT prophylaxis: Lovenox Quality Stroke Does the patient have a stroke diagnosis?: No VTE Prior VTE?: No VTE Risk Level:: Medical - moderate - high VTE Device Contraindication: Treatment Not Indicated VTE Drug Contraindication: N/A - Med Ordered
[2021-10-01] MEDS: Enoxaparin Sodium 40 MG/0.4 ML SYRINGE SUBCUT (22:34)
[2021-10-01] MEDS: 0.9 % Sodium Chloride Flush 3 ML SYRINGE IVFLUSH (22:37)
--- NOTE | 2021-10-02 | CA_ITS ---
Acquisition Time: 2021-10-02 10:37:12 Total Exercise Time: 00:07:44 Test Indications: CP Medications: SEE CHART Protocol: KOLBY Max HR: 146 BPM 87% of Pred: 166 BPM Max BP: 154/058 mmHG Max Work Load: 9.6 METS Exercise stress test with exercise 7 min 44 sec of Kolby protocol, with moderate shortness of breath and mild pressure in his chest, which he states is different from the chest discomfort that brought him into the hospital, without arrythmia, with normotensive response to exercise, without EKG changes meeting criteria for ischemia. In recovery his symptoms resolved. Test reviewed with Dr Bergeron. Referred By: Ronny Bergeron Overread By: JENNIFER GEORGES
[2021-10-02 03:29] VITALS: BP 113/70; PULSE 69; RESP 18; TEMP 36.4; O2SAT 98
[2021-10-02 05:58] VITALS: BMI 34.6
[2021-10-02] MEDS: Omeprazole 20 MG CAPSULE.DR PO (06:08)
[2021-10-02 06:42] LABS: MANUAL DIFF FLAG NO
[2021-10-02 06:45] LABS: Basophils Percent Auto 0.7 % (0-2); Eosinophils Absolute Auto 0.2 X10*3/uL (0.0-0.4); Eosinophils Percent Auto 2.9 % (0-4); Hematocrit 40.5 % (42.0-52.0); Hemoglobin 13.8 g/dl (14.0-18.0); Imm Gran Abs Auto 0.04 X10*3/uL (0.00-0.03); Imm Gran Pct Auto 0.7 % (0.0-0.4); Lymphocytes Absolute Auto 2.8 X10*3/uL (1.2-4.9); Mean Corpuscular HGB Conc 34.1 g/dl (31.0-36.0); Mean Corpuscular Hemoglobin 29.9 pg (27.0-33.0); Mean Corpuscular Volume 87.9 fL (80.0-98.0); Mean Platelet Volume 10.5 fL (9.4-12.4); Monocytes Absolute Auto 0.5 X10*3/uL (0.1-1.2); Monocytes Percent Auto 8.6 % (2-11); Neutrophils Absolute Auto 2.27 x10*3/uL (2.0-8.3); Neutrophils Percent Auto 39.1 % (45-73); Platelet Count 207 X10*3/uL (160-400); Red Blood Count 4.61 X10*6/uL (4.60-5.80); Red Cell Distribution Width 12.8 % (11.0-16.0); White Blood Count 5.8 X10*3/uL (4.8-10.8)
[2021-10-02 07:10] LABS: Anion Gap 9 (12-20); Blood Urea Nitrogen 14 mg/dL (9-16); Calcium 8.8 mg/dL (8.4-10.2); Carbon Dioxide 27 mmol/L (22-29); Chloride 108 mmol/L (96-108); Creatinine Clr Calc Pharmacy 91.9; Estimated Glomerular Filt Rate > 60; Glucose Random 89 mg/dL (60-115); Potassium 4.2 mmol/L (3.3-5.1); Sodium 140 mmol/L (135-145)
[2021-10-02 07:13] VITALS: BP 116/74; PULSE 68; RESP 18; TEMP 36.6; O2SAT 97
--- NOTE | 2021-10-02 10:12 | MHC.CM.PN ---
pt lives c spouse in their home. he reports that he is independent in his care. his is able to help him c any needs he may have , this will include a ride home at dc. pt denies the need for vna at dc. dc plan is home no svcs. cm to cont. to follow.
--- NOTE | 2021-10-02 10:15 | P.CONCA_ITS ---
History of Present Illness History of Present Illness Date of Service: 10/02/21 Requesting physician: Jose Manuel Christy Consult reason: chest pain Chief complaint: r/o ACS Narrative: I was requested to see Guilherme in cardiology consultation today for symptoms of chest discomfort. He is a pleasant 55-year-old male with prior history of hypertension, obesity, asthma who presents to hospital with retrosternal chest discomfort. He said he was in usual state of health, woke up yesterday morning and developed retrosternal/precordial chest pain which he describes as pressure. Symptoms were significant. He however then decided to come to his primary care physician's office very an EKG which was told was abnormal he was referred to the emergency room. In emergency room the EKG shows sinus rhythm with nonspecific T-wave changes in the inferior leads. He was treated and subsequently his chest pain resolved and has remained chest pain- free at this point time. No associated nausea vomiting or diaphoresis. May have as shortness of breath. There is no wheezing or cough associated with. His troponins x2 are negative. Cardiology consult was sought due to his symptoms and possibility of acute coronary syndrome. He has had similar discomfort he said few months ago when he had come to the emergency room at that time was diagnosed with asthma. He also had ran out of his medication for blood pressure about a day ago, however recorded blood pressure with not significantly/markedly elevated. Review of Systems Constitutional: Constitutional: Reports no additional constitutional complaints Eyes: Eyes: Reports no additional eye complaints ENT: Reports system reviewed and no additional complaints, except as documented Cardiovascular: Cardiovascular: Reports chest pain, Denies lightheadedness, Denies Loss of Consciousness, Denies palpitations and Denies dyspnea Respiratory: Respiratory: Reports no additional respiratory complaints and Denies dyspnea Gastrointestinal: Gastrointestinal: Reports no additional gastrointestinal complaints Genitourinary: Genitourinary: Reports no additional male genitourinary complaints Musculoskeletal: Musculoskeletal: Reports no additional musculoskeletal complaints Integumentary/Breasts: Skin/Breast: Reports system reviewed and no additional complaints, except as docu Neurologic: Reports system reviewed and no additional complaints, except as d ocumented Psychiatric: Psychiatric: Reports no additional psychiatric complaints Endocrine: Endocrine: Reports no additional endocrine complaints and Denies palpitations Hematologic/Lymphatic: Hematologic/Lymphatic: Reports no additional hematologic/lymphatic complaints Allergic/Immunologic: Allergic/Immunologic: Reports no additional allergic/immunologic complaints [facility] Past Medical History Medical History Acid reflux Asthma HTN (hypertension) Surgical History Surgical History No pertinent past surgical history Social History Social History Household Members: Family Housing: House Do you presently have visiting nurse or other home services: No Alcohol intake: never Patient Tobacco Use Status: Former Tobacco user Use of substances other than those prescribed or required for medical reasons: No Currently Displaying Signs/Symptoms of Drug Intoxication Withdrawal: No Have you been hit, kicked, punched, or otherwise hurt by someone within the past year? If so, by whom?: No Do you feel safe in your current relationship?: Yes Is there a partner from a previous relationship who is making you feel unsafe now?: No Are you made to feel afraid or neglected: No Advance Directives: No Advance Directives Information Provided: No Do you have thoughts of harming others: None Do you have a plan to hurt others: No Plan Recently lost weight without trying: Yes How much weight loss: 2-13 pounds Eating poorly because of decreased appetite: No Nutrition screen score: 3 Nutrition Risks: No Nutritional Risk Poor oral hygiene: No service: No Current occupational status: unemployed Meds Allergies Allergy/AdvReac Type Severity Reaction Status Date / Time No Known Allergies Allergy Verified 05/09/21 13:00 Active Medications: Current Medications Acetaminophen (Acetaminophen 325 Mg Tablet) 650 mg PO Q6H PRN PRN Reason: Pain, Mild (Pain Scale 1-3) Albuterol Sulfate (Albuterol Sulfate 90 Mcg 8 Gm Inhaler) 2 puff INHALE Q6H PRN PRN Reason: asthma Amitriptyline HCl (Amitriptyline Hcl 25 Mg Tablet) 25 mg PO BEDTIME PRN PRN Reason: Anxiety Docusate Sodium (Docusate Sodium 100 Mg Capsule) 100 mg PO DAILY PRN PRN Reason: Constipation Enoxaparin Sodium (Enoxaparin Sodium 40 Mg/0.4 Ml Syringe) 40 mg SUBCUT Q24H [facility] Last Admin: 10/01/21 22:34 Dose: 40 mg Documented by: Escitalopram Oxalate (Escitalopram Oxalate 5 Mg Tablet) 5 mg PO DAILY [facility] Hydrochlorothiazide (Hydrochlorothiazide 12.5 Mg Tablet) 12.5 mg PO DAILY [facility] Lisinopril (Lisinopril 10 Mg Tablet) 10 mg PO DAILY [facility] Omeprazole (Omeprazole 20 Mg Capsule.Dr) 20 mg PO DAILY@0630 [facility] Last Admin: 10/02/21 06:08 Dose: 20 mg Documented by: Ondansetron HCl (Ondansetron Hcl 4 Mg/2 Ml Vial) 4 mg IVPUSH Q8H PRN PRN Reason: Nausea and Vomiting Pharmacy Consult (Consult Rx Perform Med Rec) 1 each MISCELLANE ONCE PRN PRN Reason: Consult order Sodium Chloride (0.9 % Sodium Chloride Flush 3 Ml Syringe) 3 ml IVFLUSH QSHIFT [facility] Last Admin: 10/01/21 22:37 Dose: 3 ml Documented by: Home Medications Medication Instructions Recorded Confirmed Last Taken Type amitriptyline 25 mg tablet 1 tab PO BEDTIME PRN 10/01/21 10/01/21 Unknown History escitalopram oxalate 5 mg tablet 1 tab PO DAILY 10/01/21 10/01/21 Unknown History lisinopril 10 1 tab PO DAILY 10/01/21 10/01/21 Unknown History mg-hydrochlorothiazide 12.5 mg tablet pantoprazole 40 mg tablet,delayed 1 tab PO DAILY 10/01/21 10/01/21 Unknown History release Physical Exam Vital Signs: Vital Signs: Last Vital Signs Temp 97.8 F 10/02/21 07:13 Pulse 68 10/02/21 07:13 Resp 18 10/02/21 07:13 BP 116/74 10/02/21 07:13 Pulse Ox 97 10/02/21 07:13 Body Mass Index 34.6 Const: General: cooperative, comfortable, no acute distress, alert and awake Nutritional Appearance: obese Orientation/consciousness: patient oriented x3 Limitations: no limitations HENMT: Head: Yes normocephalic and Yes atraumatic Neck: Neck: Yes trachea midline, Yes supple and Yes no JVD Resp: Effort & Inspection: normal respiratory effort Auscultation: clear to auscultation bilaterally Cardio: Jugular venous distension: no JVD Palpation: normal PMI Rate: regular rate Rhythm: regular rhythm Heart sounds: S1 normal heart sound present, S2 normal heart sound present, no click, no gallops, no murmurs and no rubs Skin: General skin exam: no rashes or lesions noted Neuro: General: patient oriented x3 and no focal motor deficits Extrem: General: Yes no clubbing, cyanosis or edema Results Labs and Meds Result diagrams: 10/02/21 06:05 10/02/21 06:05 Lab results: Laboratory Results - last 24 hr 10/01/21 10/01/21 10/01/21 17:03 17:03 17:03 WBC 5.5 RBC 4.95 Hgb 14.8 Hct 42.7 MCV 86.3 MCH 29.9 MCHC 34.7 RDW 12.4 Plt Count 218 MPV 10.3 Immature Gran % (Auto) 0.4 Neut % (Auto) 59.7 Lymph % (Auto) 30.2 [place] % (Auto) 7.9 Eos % (Auto) 1.3 Baso % (Auto) 0.5 Lymph # (Auto) 1.7 [place] # (Auto) 0.4 Eos # (Auto) 0.1 Baso # (Auto) 0.0 Abs Immat Gran (auto) 0.02 Absolute Neuts (auto) 3.26 Absolute Nucleated RBC 0.000 Nucleated RBC % (auto) 0.0 PT INR D-Dimer Sodium 141 Potassium 4.0 Chloride 110 H Carbon Dioxide 23 Anion Gap 12 BUN 13 Creatinine 0.88 Estim Creat Clear Calc 100.5 Estimated GFR > 60 Random Glucose 83 Calcium 9.2 Total Bilirubin 0.4 AST 18 ALT 25 Alkaline Phosphatase 99 Troponin I High Sens 20.3 Total Protein 6.8 Albumin 4.3 COVID-19 ([facility]) COVID-19 Clin Com 10/01/21 10/01/21 10/01/21 17:03 17:03 19:05 WBC RBC Hgb Hct MCV MCH MCHC RDW Plt Count MPV Immature Gran % (Auto) Neut % (Auto) Lymph % (Auto) [place] % (Auto) Eos % (Auto) Baso % (Auto) Lymph # (Auto) [place] # (Auto) Eos # (Auto) Baso # (Auto) Abs Immat Gran (auto) Absolute Neuts (auto) Absolute Nucleated RBC Nucleated RBC % (auto) PT 12.8 INR 1.1 D-Dimer < 200 Sodium Potassium Chloride Carbon Dioxide Anion Gap BUN Creatinine Estim Creat Clear Calc Estimated GFR Random Glucose Calcium Total Bilirubin AST ALT Alkaline Phosphatase Troponin I High Sens 17.2 Total Protein Albumin COVID-19 ([facility]) Negative COVID-19 Clin Com See Note 10/02/21 10/02/21 06:05 06:05 WBC 5.8 RBC 4.61 Hgb 13.8 L Hct 40.5 L MCV 87.9 MCH 29.9 MCHC 34.1 RDW 12.8 Plt Count 207 MPV 10.5 Immature Gran % (Auto) 0.7 H Neut % (Auto) 39.1 L Lymph % (Auto) 48.0 H [place] % (Auto) 8.6 Eos % (Auto) 2.9 Baso % (Auto) 0.7 Lymph # (Auto) 2.8 [place] # (Auto) 0.5 Eos # (Auto) 0.2 Baso # (Auto) 0.0 Abs Immat Gran (auto) 0.04 H Absolute Neuts (auto) 2.27 Absolute Nucleated RBC 0.000 Nucleated RBC % (auto) 0.0 PT INR D-Dimer Sodium 140 Potassium 4.2 Chloride 108 Carbon Dioxide 27 Anion Gap 9 L BUN 14 Creatinine 0.97 Estim Creat Clear Calc 91.9 Estimated GFR > 60 Random Glucose 89 Calcium 8.8 Total Bilirubin AST ALT Alkaline Phosphatase Troponin I High Sens Total Protein Albumin COVID-19 ([facility]) COVID-19 Clin Com Assessment and Plan (1) Chest pain: Status: Acute Acute onset chest discomfort in malaise man with risk factors of obesity, hypertension and borderline hyperlipidemia. He has normal troponins and no significant ischemic EKG changes. However intermediate likelihood of acute coronary syndrome. Would suggest him to undergo stress test to further evaluate for myocardial ischemia. If stress test at good workload and heart rate is within normal limits unlikely to represent myocardial ischemia/obstructive jose alejandro nary artery disease. He can then be discharged home with his usual treatment for hypertension. If the stress test is abnormal will require further workup with cardiac catheterization transfer to [facility]. This was discussed with him. In the long run should consider treating his lipids with target goal LDL less than 100 mg/dL. Will follow with him as outpatient once stress test is completed Procedures Date of Service Date of Service: 10/02/21
[2021-10-02] MEDS: Escitalopram Oxalate 5 MG TABLET PO (10:29)
[2021-10-02 10:30] VITALS: BP 116/74; PULSE 68
[2021-10-02] MEDS: hydroCHLOROthiazide 12.5 MG TABLET PO (10:30)
[2021-10-02] MEDS: lisinopriL 10 MG TABLET PO (10:30)
[2021-10-02] MEDS: 0.9 % Sodium Chloride Flush 3 ML SYRINGE IVFLUSH (10:30)
[2021-10-02 11:15] VITALS: BP 124/76; PULSE 97; RESP 18; TEMP 36.7; O2SAT 99
--- NOTE | 2021-10-02 11:22 | HO.PM.IMPN ---
Subjective Subjective Date of Service: 10/02/21 Interval History: Chest pain Physical Exam Vital Signs: Vital Signs: Last Vital Signs Temp 98.0 F 10/02/21 11:15 Pulse 97 10/02/21 11:15 Resp 18 10/02/21 11:15 BP 124/76 10/02/21 11:15 Pulse Ox 99 10/02/21 11:15 Body Mass Index 34.6 Objective Data Active Medications Acetaminophen (Acetaminophen 325 Mg Tablet) 650 mg PO Q6H PRN PRN Reason: Pain, Mild (Pain Scale 1-3) Albuterol Sulfate (Albuterol Sulfate 90 Mcg 8 Gm Inhaler) 2 puff INHALE Q6H PRN PRN Reason: asthma Amitriptyline HCl (Amitriptyline Hcl 25 Mg Tablet) 25 mg PO BEDTIME PRN PRN Reason: Anxiety Docusate Sodium (Docusate Sodium 100 Mg Capsule) 100 mg PO DAILY PRN PRN Reason: Constipation Enoxaparin Sodium (Enoxaparin Sodium 40 Mg/0.4 Ml Syringe) 40 mg SUBCUT Q24H [facility] Last Admin: 10/01/21 22:34 Dose: 40 mg Documented by: RIVAS Escitalopram Oxalate (Escitalopram Oxalate 5 Mg Tablet) 5 mg PO DAILY [facility] Last Admin: 10/02/21 10:29 Dose: 5 mg Documented by: WALT Hydrochlorothiazide (Hydrochlorothiazide 12.5 Mg Tablet) 12.5 mg PO DAILY [facility] Last Admin: 10/02/21 10:30 Dose: 12.5 mg Documented by: WALT Lisinopril (Lisinopril 10 Mg Tablet) 10 mg PO DAILY [facility] Last Admin: 10/02/21 10:30 Dose: 10 mg Documented by: WALT Omeprazole (Omeprazole 20 Mg Capsule.) 20 mg PO DAILY@0630 [facility] Last Admin: 10/02/21 06:08 Dose: 20 mg Documented by: RIVAS Ondansetron HCl (Ondansetron Hcl 4 Mg/2 Ml Vial) 4 mg IVPUSH Q8H PRN PRN Reason: Nausea and Vomiting Pharmacy Consult (Consult Rx Perform Med Rec) 1 each MISCELLANE ONCE PRN PRN Reason: Consult order Sodium Chloride (0.9 % Sodium Chloride Flush 3 Ml Syringe) 3 ml IVFLUSH QSHIFT [facility] Last Admin: 10/02/21 10:30 Dose: 3 ml Documented by: WALT Labs CBC & Chem 7: 10/02/21 06:05 10/02/21 06:05 Labs: Laboratory Results - last 24 hr 10/01/21 10/01/21 10/01/21 17:03 17:03 17:03 MCV 86.3 MCH 29.9 MCHC 34.7 RDW 12.4 Plt Count 218 MPV 10.3 Immature Gran % (Auto) 0.4 Neut % (Auto) 59.7 Lymph % (Auto) 30.2 [place] % (Auto) 7.9 Eos % (Auto) 1.3 Baso % (Auto) 0.5 Lymph # (Auto) 1.7 [place] # (Auto) 0.4 Eos # (Auto) 0.1 Baso # (Auto) 0.0 Abs Immat Gran (auto) 0.02 Absolute Neuts (auto) 3.26 Absolute Nucleated RBC 0.000 Nucleated RBC % (auto) 0.0 PT INR D-Dimer Anion Gap 12 Estim Creat Clear Calc 100.5 Estimated GFR > 60 Random Glucose 83 Calcium 9.2 Total Bilirubin 0.4 AST 18 ALT 25 Alkaline Phosphatase 99 Troponin I High Sens 20.3 Total Protein 6.8 Albumin 4.3 COVID-19 ([facility]) COVID-19 Clin Com 10/01/21 10/01/21 10/01/21 17:03 17:03 19:05 MCV MCH MCHC RDW Plt Count MPV Immature Gran % (Auto) Neut % (Auto) Lymph % (Auto) [place] % (Auto) Eos % (Auto) Baso % (Auto) Lymph # (Auto) [place] # (Auto) Eos # (Auto) Baso # (Auto) Abs Immat Gran (auto) Absolute Neuts (auto) Absolute Nucleated RBC Nucleated RBC % (auto) PT 12.8 INR 1.1 D-Dimer < 200 Anion Gap Estim Creat Clear Calc Estimated GFR Random Glucose Calcium Total Bilirubin AST ALT Alkaline Phosphatase Troponin I High Sens 17.2 Total Protein Albumin COVID-19 ([facility]) Negative COVID-19 Clin Com See Note 10/02/21 10/02/21 06:05 06:05 MCV 87.9 MCH 29.9 MCHC 34.1 RDW 12.8 Plt Count 207 MPV 10.5 Immature Gran % (Auto) 0.7 H Neut % (Auto) 39.1 L Lymph % (Auto) 48.0 H [place] % (Auto) 8.6 Eos % (Auto) 2.9 Baso % (Auto) 0.7 Lymph # (Auto) 2.8 [place] # (Auto) 0.5 Eos # (Auto) 0.2 Baso # (Auto) 0.0 Abs Immat Gran (auto) 0.04 H Absolute Neuts (auto) 2.27 Absolute Nucleated RBC 0.000 Nucleated RBC % (auto) 0.0 PT INR D-Dimer Anion Gap 9 L Estim Creat Clear Calc 91.9 Estimated GFR > 60 Random Glucose 89 Calcium 8.8 Total Bilirubin AST ALT Alkaline Phosphatase Troponin I High Sens Total Protein Albumin COVID-19 ([facility]) COVID-19 Clin Com Quality Stroke Does the patient have a stroke diagnosis?: No VTE Prior VTE?: No VTE Risk Level:: Medical - moderate - high VTE Device Contraindication: Treatment Not Indicated VTE Drug Contraindication: N/A - Med Ordered
--- NOTE | 2021-10-02 11:33 | PM.EVENT ---
Event Note Date of Service: 10/02/21 Event Note: Exercise stress test showed good exercise capacity, mod sob and mild chest pressure but stated this pressure was different from symptom that brought him to hospital. No ischemia or arrythmia on EKGs. Reviewed with Dr Bergeron. Pt can be discharged from cardiology perspective.We will arrange for outpt nuclear stress test to further eval for ischemia, echocardiogram and cardiology follow up once results are available. Hospitalist notified.
--- NOTE | 2021-10-02 11:56 | MHC.CLN ---
RE: CONSULT FOR WT LOSS PREVIOUS WT HX REVEALS CURRENT WT 94.4KG (10/02/21) 207.7# 90.7KG (05/09/21) 199.5 PT WITH 4% WT GAIN SINCE PREVIOUS ADMISSION REGULAR DIET IN PLACE
--- NOTE | 2021-10-02 12:07 | PM.DS ---
DS: Providers Provider Date of Service: 10/02/21 Date of admission: 10/01/21 19:45 Primary care physician: Unknown Physician Consults: 10/01/21 22:06 Consult to Cardiology Routine Consulting Provider: Ronny Bergeron Reason for consultation: cardiac chest pain Has provider been notified: No DS: Diagnosis Discharge Diagnosis (1) Chest pain: Status: Acute DS: Summary Hospital Course Hospital Course: 55-year-old male with past medical history of hypertension, asthma and GERD presents to the hospital with complaints of chest pain.? Patient reports that the pain started in the morning, midsternal, radiating to the back, 06/08, heavy/squeezing in sensation, constant, occurred while he was visiting his doctor's office, improved with nitro and morphine, not relieved by rest, no exacerbating factors.? Associated with palpitations and some shortness of breath as well as diaphoresis.? Patient also developed a slight headache but has not resolved.? Denies any cough, sputum production, no fever or chills, no abdominal pain nausea or vomiting, he denies any urinary symptoms and no lower extremity edema.? No numbness with tingling or weakness. No significant abnormal vitals Labs are significant for troponin of 20 that decreased to 17.2 with no other significant abnormalities, EKG shows normal sinus rhythm with no significant ST T wave abnormality except for a T-wave inversion in leads III otherwise no significant change when compared to previous EKG from April. Hospital course: Patient came to the hospital because chest pain-have stress test done seems to be negative. Troponin seems negative. Patient had stress test done which is negative also, now asymptomatic. Cardiology saw the patient further workup including outpatient nuclear test echo will be done out patiently, cardio may arrange their outpatient appointment. Follow-up with the PCP out patiently for further management. Above management discussed with the patient in detail length he understand and in agreement with the above plan, time spent 50 minutes and 50% time spent on counseling. Significant findings: As above. Procedures performed: None. Treatment and response: As above. Complications: None. Time Spent with Patient Time attestation: Total time spent providing and/or coordinating discharge services: Discharge coordination time: Greater than 30 minutes Quality: Stroke Does the patient have a stroke diagnosis?: No Physical Exam Vital Signs: Vital Signs: Last Vital Signs Temp 98.0 F 10/02/21 11:15 Pulse 97 10/02/21 11:15 Resp 18 10/02/21 11:15 BP 124/76 10/02/21 11:15 Pulse Ox 99 10/02/21 11:15 Body Mass Index 34.6 Physical exam: Appearance: Alert.? Oriented X3.? not in distress.? Eyes: Pupils equal, round and reactive to light.? Sclera nonicteric.? ENT: Pharynx normal.? Moist mucous membranes. cvs: rrr, [id number]. res: clear to auscultation ,no rhonchii or wheezing abd: no rebound or guarding ,nt, bs present. ext pulses present , no cyanosis ,Gait well balanced well coordinated. neuro: axo3 , nonfocal. DS: Data Data Completed and Pending Labs on day of discharge: Laboratory Results - last 24 hr 10/01/21 10/01/21 10/01/21 17:03 17:03 17:03 WBC 5.5 RBC 4.95 Hgb 14.8 Hct 42.7 MCV 86.3 MCH 29.9 MCHC 34.7 RDW 12.4 Plt Count 218 MPV 10.3 Immature Gran % (Auto) 0.4 Neut % (Auto) 59.7 Lymph % (Auto) 30.2 [place] % (Auto) 7.9 Eos % (Auto) 1.3 Baso % (Auto) 0.5 Lymph # (Auto) 1.7 [place] # (Auto) 0.4 Eos # (Auto) 0.1 Baso # (Auto) 0.0 Abs Immat Gran (auto) 0.02 Absolute Neuts (auto) 3.26 Absolute Nucleated RBC 0.000 Nucleated RBC % (auto) 0.0 PT INR D-Dimer Sodium 141 Potassium 4.0 Chloride 110 H Carbon Dioxide 23 Anion Gap 12 BUN 13 Creatinine 0.88 Estim Creat Clear Calc 100.5 Estimated GFR > 60 Random Glucose 83 Calcium 9.2 Total Bilirubin 0.4 AST 18 ALT 25 Alkaline Phosphatase 99 Troponin I High Sens 20.3 Total Protein 6.8 Albumin 4.3 COVID-19 ([facility]) COVID-19 Clin Com 10/01/21 10/01/21 10/01/21 17:03 17:03 19:05 WBC RBC Hgb Hct MCV MCH MCHC RDW Plt Count MPV Immature Gran % (Auto) Neut % (Auto) Lymph % (Auto) [place] % (Auto) Eos % (Auto) Baso % (Auto) Lymph # (Auto) [place] # (Auto) Eos # (Auto) Baso # (Auto) Abs Immat Gran (auto) Absolute Neuts (auto) Absolute Nucleated RBC Nucleated RBC % (auto) PT 12.8 INR 1.1 D-Dimer < 200 Sodium Potassium Chloride Carbon Dioxide Anion Gap BUN Creatinine Estim Creat Clear Calc Estimated GFR Random Glucose Calcium Total Bilirubin AST ALT Alkaline Phosphatase Troponin I High Sens 17.2 Total Protein Albumin COVID-19 ([facility]) Negative COVID-19 Clin Com See Note 10/02/21 10/02/21 06:05 06:05 WBC 5.8 RBC 4.61 Hgb 13.8 L Hct 40.5 L MCV 87.9 MCH 29.9 MCHC 34.1 RDW 12.8 Plt Count 207 MPV 10.5 Immature Gran % (Auto) 0.7 H Neut % (Auto) 39.1 L Lymph % (Auto) 48.0 H [place] % (Auto) 8.6 Eos % (Auto) 2.9 Baso % (Auto) 0.7 Lymph # (Auto) 2.8 [place] # (Auto) 0.5 Eos # (Auto) 0.2 Baso # (Auto) 0.0 Abs Immat Gran (auto) 0.04 H Absolute Neuts (auto) 2.27 Absolute Nucleated RBC 0.000 Nucleated RBC % (auto) 0.0 PT INR D-Dimer Sodium 140 Potassium 4.2 Chloride 108 Carbon Dioxide 27 Anion Gap 9 L BUN 14 Creatinine 0.97 Estim Creat Clear Calc 91.9 Estimated GFR > 60 Random Glucose 89 Calcium 8.8 Total Bilirubin AST ALT Alkaline Phosphatase Troponin I High Sens Total Protein Albumin COVID-19 ([facility]) COVID-19 Clin Com Discharge Plan Discharge Patient Disposition: Home, Self-Care Discharge Diagnosis: chest pain Referrals: Physician,Unknown J [Primary Care Provider] - 1 Week Discharge Medications: Continued albuterol sulfate 90 mcg/actuation HFA aerosol inhaler 2 puff inhalation Q6H PRN (Reason: asthma) Qty: 8.5 RF: 0 amitriptyline 25 mg tablet 1 tab PO BEDTIME PRN (Reason: Anxiety) RF: 0 pantoprazole 40 mg tablet,delayed release (DR/EC) 1 tab PO DAILY RF: 0 escitalopram oxalate 5 mg tablet 1 tab PO DAILY RF: 0 lisinopril-hydrochlorothiazide 10-12.5 mg tablet 1 tab PO DAILY RF: 0 Discharge Orders: Discharge Order (Routine); Ordered 10/02/21 Ordered By: Laura Russell Diet: advance to usual diet Activity on Discharge: As tolerated Stand Alone Forms: Patient Portal Discharge page Care Plan Goals: Patient came to the hospital because chest pain-have stress test done seems to be negative. Troponin seems negative. Patient had stress test done which is negative also, now asymptomatic. Cardiology saw the patient further workup including outpatient nuclear test echo will be done out patiently, cardio may arrange their outpatient appointment. Follow-up with the PCP out patiently for further management. Health Concerns: As above. Plan of Treatment: As above. Assessment: As above.
[2021-10-02 14:34] VITALS: BP 134/74; PULSE 95; RESP 20; TEMP 36.9; O2SAT 97
== END 2021-10-02 15:50 | disposition home or self-care (01) ==
LOC: HO.ED 17:46 → HO.EDOVER 19:51 → HO.IMC 21:25
PROVIDERS: Admitting Provider Internal Medicine; Emergency Provider Emergency Medicine; PCP Internal Medicine; Visit Provider Internal Medicine
DX: R07.9 Chest pain, unspecified (principal); L74.519 Primary focal hyperhidrosis, unspecified; R51.9 Headache, unspecified; I10 Essential (primary) hypertension; J45.30 Mild persistent asthma, uncomplicated; Z20.822 Contact with and (suspected) exposure to COVID-19; Z91.030 Bee allergy status; Z79.899 Other long term (current) drug therapy
CPT/HCPCS: 36415; 80048; 80053; 84484; 85025; 85379; 85610; 87635; 90471; 90686; 93005; 93017; 96372; 96374; 96375; 99219; 99285; J1650; J2270

== ENCOUNTER → 2021-10-28 08:52 | Outpatient (BNVA) | payer MEDICAID, SELFPAY | PROVIDERS: PCP Internal Medicine; Referring Provider Internal Medicine; Visit Provider Nurse Practitioner Family | DX: Z12.11 Encounter for screening for malignant neoplasm of colon (principal); K21.9 Gastro-esophageal reflux disease without esophagitis; K62.5 Hemorrhage of anus and rectum | CPT/HCPCS: 99202 ==

== ENCOUNTER → 2021-10-29 08:44 | Outpatient (REF) | payer MEDICAID, SELFPAY ==
--- NOTE | ~2021-10-29 | NM_ITS ---
Exercise Myocardial perfusion study Indication: Chest pain to evaluate for myocardial ischemia Technique: The patient was brought in for an exercise perfusion study on 10/29/2021. Patient performed exercise as per Taye protocol and was injected 35 mCi of sestamibi was given intravenously one target HR was achieved. Images were obtained using the SPECT gamma camera interlaced with the gating device. Images were obtained in supine position. Resting perfusion study was performed on 10/30/2021. Patient was administered 35 mCi of sestamibi intravenously at rest. Images were then obtained in supine position. Images obtained with and without CT attenuation. Total DLP 106 mGy-cm. Images were processed with the software and compared side to side in short axis, horizontal long axis and vertical long axis views. Findings: The stress perfusion study showed non attenuated images show normal uptake of radiotracer in all segments of LV myocardium. Impression corrected images show mildly reduced uptake in the apex of the. The gated study shows normal LV systolic function with calculated LVEF of greater than 70 %. LV cavity is normal in size. The gated study shows normal systolic wall thickening and contraction of all segments. There is no transient ischemic dilation. Resting study shows no change in perfusion pattern compared to stress perfusion study. Gating at rest reveals normal systolic wall motion with ejection fraction at 71%. The findings are consistent with normal myocardial perfusion. NM/NM cardiolite stress test Impression: 1. Normal myocardial perfusion 2. Gated LVEF is greater than 70% 3. Transient ischemic dilatation not present Stress EKG is negative for ischemia
--- NOTE | 2021-10-29 09:00 | CA_ITS ---
Acquisition Time: 2021-10-29 09:34:44 Total Exercise Time: 00:08:00 Test Indications: CHEST PAIN Medications: ALBUTEROL LEVOPRIL/HCTZ Protocol: KOLBY Max HR: 137 BPM 87% of Pred: 156 BPM Max BP: 142/080 mmHG Max Work Load: 10.1 METS Exercise stress test with exercise 8 min of Kolby protocol, with mild sob, no chest discomfort, without arrythmia, with normotensive response to exercise, without EKG changes meeting criteria for ischemia. In recoery there was slight downsloping of ST in V6, in addition to the ST/ T abnormalities in leads III, aVF that were present throughout test - unclear signficance. Nuclear images pending. Test reviewed with Dr Leos. Referred By: Gabriela Mayorga Overread By: GABRIELA MAYORGA
== END ==
LOC: HO.CARD 08:44
PROVIDERS: PCP Internal Medicine; Visit Provider Nurse Practitioner Family
DX: R07.9 Chest pain, unspecified (principal)
CPT/HCPCS: 78452; 93017; A9500

== ENCOUNTER → 2021-12-10 13:31 | Outpatient (REF) | payer MEDICAID, SELFPAY ==
--- NOTE | 2021-12-10 13:35 | CA_ITS ---
Transthoracic Echocardiogram Amended Patient (Last, First, Middle): Guilherme Rodríguez O Gender: Male Date of : 1965 Age: 56 Procedure Date: 12/10/2021 Procedure Type: Transthoracic Echocardiogram Location: OP Height: 165.1 cm Weight: 94.35 kg BSA: 2.01 m2 Heart Rate: bpm BP: 134 / 80 mmHg Taxonomist: DANIELA Referring MD: Gabriela Mayorga AEROBICS TEACHER-C Symptoms: R07.9 - Chest pain, unspecified Study Quality: Fair ECG Rhythm: Sinus Conclusions: - The left ventricular systolic function is normal. The calculated ejection fraction is 66% by biplane method. - There is mildly decreased right ventricular systolic function. - No obvious valvular pathology seen on this study. Findings Left Ventricle Normal left ventricular cavity size. There is mildly increased left ventricular wall thickness. The left ventricular systolic function is normal. The calculated ejection fraction is 66% by biplane method. There is no evidence of regional wall motion abnormalities. E/E prime ratio is between 8 and 15 consistent with indeterminate filling pressures. Evidence suggests grade I (mild) diastolic dysfunction. Right Ventricle Normal right ventricular cavity size. There is mildly decreased right ventricular systolic function. (TAPSE 1.6cm). Atria Both atria are normal in size. Aortic Valve There is a normal trileaflet aortic valve. There is no aortic valve stenosis. There is no aortic valve regurgitation. Mitral Valve The mitral valve appears normal. There is no mitral valve regurgitation. There is no mitral valve stenosis. Pulmonic Valve The pulmonic valve was not well visualized. Tricuspid Valve Normal tricuspid valve structure. There is trace tricuspid valve regurgitation. The pulmonary artery systolic pressure is normal. Great Vessels The aortic annulus, sinuses of valsalva, and asc aorta are normal in size. Venous The inferior vena cava is normal in size and collapses greater than 50% with inspiration. Pericardium/Pleural There is no evidence of pericardial effusion. Prior Study Comparison No prior study available for comparison. Recommendations, Care & Conclusions No obvious valvular pathology seen on this study. Measurements 2D Linear Measurements IVSd: 1.21 0.6-0.9/0.6-1.0 cm LVIDd: 3.94 3.9-5.3/4.2-5.9 cm LVIDd Index: 1.96 2.4-3.2/2.2-3.1 cm/m2 LVIDs: 2.33 2.0-3.6 cm LVPWd: 1.22 0.7-1.1 cm Ao Root: 3.20 2.1-3.5 cm LA Diam: 3.70 2.7-3.8/3.0-4.0 cm LAIDs Index: 1.84 1.5-2.3 cm/m2 LV Mass: 205.20 67-162/88-224 g LV Mass Index: 102.09 43-95/49-115 g/m2 LVOT Diam: 2.00 3.0+(-)1.3 cm 2D Volumes LA Vol: 13.20 2D Systolic Function EF 4C: 63.20 >55% EF 2C: 66.40 >55% EF BiP: 66.20 >55% Mitral Valve MV Pk E: 0.51 MV PK A: 0.70 MV Decel Time: 148.00 E/A: 0.70 E'Lateral: 4.35 E'Medial: 5.00 E/E' Med: 10.30 E/E' Lat: 11.80 PHT: 43.00 MVA PHT: 5.12 Decel [place]: 3.47 Aortic Valve AoV Pk Wisam: 1.15 AoV Mn Wisam: 0.81 AoV VTI: 0.20 AoV Pk Grad: 5.00 Aov Mn Grad: 3.00 JHON Cont.VTI: 2.65 LVOT LVOT Pk Wis[place]: 1.00 LVOT Mn [place]: 0.70 LVOT VTI: 0.17 LVOT Pk Grad: 4.00 LVOT Mn Grad: 2.00 LVOT Diam: 2.00 LVOT Area: 3.14 Diastolic Function MV Pk E: 0.51 MV Pk A: 0.70 E/A: 0.70 E'Medial: 5.00 E/E' Med: 10.30 E' Laterial: 4.35 E/E' Lat: 11.80 Right Ventricle TAPSE (mm): 16.00 TVS' Wisam: 10.00 Tricuspid Valve TR Pk Wisam: 2.38 TR Pk Grad: 23.00 Great Vessels Aorta Ao Root-2D: 3.20 2.0-3.7 cm Ao Asc: 3.30 2.1-3.4 cm Pulmonary Valve PV Pk Wisam: 1.24 Peak PV Grad: 6.00 Updated in Other Vendor System with Status of Final Harris Leos MD electronically signed on 12/12/2021 5:57:54 PM with status of Final
== END ==
LOC: HO.CARD 13:31
PROVIDERS: Visit Provider Nurse Practitioner Family
DX: R07.9 Chest pain, unspecified (principal); I10 Essential (primary) hypertension
CPT/HCPCS: 93306

== ENCOUNTER → 2021-12-12 12:23 | Outpatient (BNVA) | payer MEDICAID, SELFPAY | PROVIDERS: PCP Internal Medicine; Referring Provider Internal Medicine; Visit Provider Nurse Practitioner Family | DX: Z01.810 Encounter for preprocedural cardiovascular examination (principal); I10 Essential (primary) hypertension; R07.9 Chest pain, unspecified | CPT/HCPCS: 99212 ==

== ENCOUNTER 2023-09-09 11:36 | Outpatient (REF) | payer MEDICAID, SELFPAY ==
[2023-09-10 04:39] LABS: ~HepC Num1 0.03 S/CO (0.00-0.79); ~Hepatitis C Antibody Nonreactive (Nonreactive)
[2023-09-12 16:28] LABS: HIV RNA PCR Qn Copies Not Detected Copies/mL; HIV RNA PCR Qn Log Copies Not Detected Log cps/mL
== END 2023-09-09 11:37 | disposition home or self-care (01) ==
LOC: HO.CHCLDS 11:36
PROVIDERS: Visit Provider Internal Medicine
DX: I10 Essential (primary) hypertension (principal)
CPT/HCPCS: 36415; 80053; 80061; 83036; 84153; 84443; 85025; 86803; 87536; 87900

== ENCOUNTER 2024-12-08 16:11 | Outpatient (REF) | payer MEDICAID, SELFPAY ==
[2024-12-08 17:42] LABS: MANUAL DIFF FLAG NO
[2024-12-08 18:04] LABS: Appearance Urine Clear; Color Urine Yellow; Glucose Urine UA Negative (Negative); Leukocyte Esterase Urine Negative (Negative); Nitrite Urine Negative (Negative); PH 5.5 (5.0-9.0); Specific Gravity - Urine 1.015 (1.005-1.025); Urine Blood Negative (Negative); Urine Ketones Negative (Negative); Urine Protein Negative (Neg-Trace)
[2024-12-08 18:14] LABS: Bacteria Urine None Seen (None Seen); Hyaline Casts Urine 0-2 /LPF (0-2); RBC Urine 0-2 /HPF (0-2); Squamous Epithelial Cell Urine 0-2 /HPF (0-2); WBC Urine 0-5 /HPF (0-5)
[2024-12-08 18:25] LABS: Basophils Absolute Auto 0.1 X10*3/uL (0.0-0.2); Eosinophils Absolute Auto 0.1 X10*3/uL (0.0-0.4); Eosinophils Percent Auto 1.4 % (0-4); Hematocrit 45.2 % (42.0-52.0); Hemoglobin 15.4 g/dl (14.0-18.0); Imm Gran Abs Auto 0.04 X10*3/uL (0.00-0.03); Imm Gran Pct Auto 0.6 % (0.0-0.4); Lymphocytes Absolute Auto 2.4 X10*3/uL (1.2-4.9); Lymphocytes Percent Auto 37.7 % (20-40); Mean Corpuscular HGB Conc 34.1 g/dl (31.0-36.0); Mean Corpuscular Hemoglobin 29.4 pg (27.0-33.0); Mean Corpuscular Volume 86.4 fL (80.0-98.0); Mean Platelet Volume 11.2 fL (9.4-12.4); Monocytes Absolute Auto 0.5 X10*3/uL (0.1-1.2); Monocytes Percent Auto 7.7 % (2-11); Neutrophils Absolute Auto 3.2 x10*3/uL (2.0-8.3); Neutrophils Percent Auto 51.6 % (45-73); Platelet Count 269 X10*3/uL (160-400); Red Blood Count 5.23 X10*6/uL (4.60-5.80); Red Cell Distribution Width 12.9 % (11.0-16.0); White Blood Count 6.2 X10*3/uL (4.8-10.8)
[2024-12-09 02:01] LABS: CT PCR NOT DETECTED (Not Detect.); NG PCR NOT DETECTED (Not Detect.)
== END 2024-12-08 16:12 | disposition home or self-care (01) ==
LOC: HO.CHCLDS 16:11
PROVIDERS: Visit Provider Internal Medicine
DX: K92.1 Melena (principal); N45.1 Epididymitis
CPT/HCPCS: 36415; 81001; 85025; 87491; 87591

== ENCOUNTER → 2024-12-28 10:20 | Outpatient (BNVA) | payer OTHER, SELFPAY | PROVIDERS: PCP Internal Medicine; Visit Provider Surgery | DX: K64.8 Other hemorrhoids (principal); K64.4 Residual hemorrhoidal skin tags | CPT/HCPCS: 46600 ==

== ENCOUNTER 2025-05-29 10:43 | Outpatient (REF) | payer OTHER, SELFPAY ==
--- OUTSIDE RECORDS SUMMARY | 2025-05-29 11:28 | XMS_ITS | Encounter Summary ---
Author Organization [employer] Address [address] [place] [address] Care Team Providers Care Assistant Department Manager Name Role Phone Jus Toussaint MD Primary Care Prov ider Encounter Details Date Type Department Care Team ([facility] Contact Info) Description 05/17/2025 Orders Only [facility] [address], [place] [id number] Jus Toussaint MD [address] [place] [address] Social History Tobacco Use Types Packs/Day Years Used Date Smoking Tobacco: Former Cigarettes Q uit: 1999 Passive Smoke Exposure: Past Smokeless Tobacco: Never Alcohol Use Standard Drinks/Week Comments Never 0 (1 standard drink = 0.6 oz pur e alcohol) Depression Answer Date Recorded Patient Health Questionnaire-9 Score 19 02/08/2024 Patient Health Questionnaire-9 Score 19 02/08/2024 Last PHQ-9: Questionnaire Data Not on file 0 02/08/2024 Housing Stability Answer Date Recorded What is your housing situation today? I have leonel tomlinson 09/15/[address] you li ve. Do you have problems with any of the following? None of the above 09/15/2023 Food Insecurity Answer Date Recorded Within the past 12 months, y ou worried that your food would run out before you got money to buy more: Never True 09/15/2023 Within the past 12 months,th e food you bought just didn't last and you didn't have enough money to get more: Never True Transportation Answer Date Recorded In the past 12 months, has l ack of transportation kept you from medical appts, meetings, work or from getting things needed for daily living? No 09/15/2023 Utilities Answer Date Recorded In the past 12 months, has t he electric, gas, oil or water company threatened to shut off services in your home? No 09/15/2023 Depression Answer Date Recorded Patient Health Questionnaire-2 Score 4 02/08/2024 Sex and Gender Information Value Date Recorded Sex Assigned at Male 09/29/2022 10:29 AM EDT Legal Sex Male 10:29 AM EDT Gender Identity Male 09/29/2022 10:29 AM EDT Sexual Orientation Straight 09/29/2022 10 :29 AM EDT documented as of this encounter Plan of Treatment Upcoming Encounters Date Type Department Care Team (Late st Contact Info) Description 06/12/2025 10:30 AM EDT Office Visit [facility] [address] [place] [address] Jus Toussaint MD [address] [place] [address] 06/19/2025 9:30 AM EDT Clinical Support [facility] [address] [place] [address] documented as of this encounter Visit Diagnoses Not on filedocumented in this encounter Additional Health Concerns Assessment Noted Time PHQ-9 Depression Total Score: 19 024 10:20 AM EDT documented as of this encounter Care Teams Assistant Department Manager Relationship Specialty Start Date End Date Jus Toussaint MD [address] [place] [address] PCP - General Internal Medicine 05/15/21 documented as of this encounter
[2025-05-29 14:52] LABS: MANUAL DIFF FLAG NO
[2025-05-29 14:58] LABS: Basophils Absolute Auto 0.1 X10*3/uL (0.0-0.2); Basophils Percent Auto 1.1 % (0-2); Eosinophils Absolute Auto 0.1 X10*3/uL (0.0-0.4); Eosinophils Percent Auto 1.3 % (0-4); Hematocrit 46.3 % (42.0-52.0); Hemoglobin 15.8 g/dl (14.0-18.0); Imm Gran Abs Auto 0.02 X10*3/uL (0.00-0.03); Imm Gran Pct Auto 0.4 % (0.0-0.4); Lymphocytes Absolute Auto 1.7 X10*3/uL (1.2-4.9); Lymphocytes Percent Auto 37.7 % (20-40); Mean Corpuscular HGB Conc 34.1 g/dl (31.0-36.0); Mean Platelet Volume 11.6 fL (9.4-12.4); Monocytes Absolute Auto 0.6 X10*3/uL (0.1-1.2); Monocytes Percent Auto 12.3 % (2-11); Neutrophils Absolute Auto 2.2 x10*3/uL (2.0-8.3); Neutrophils Percent Auto 47.2 % (45-73); Platelet Count 284 X10*3/uL (160-400); Red Blood Count 5.45 X10*6/uL (4.60-5.80); White Blood Count 4.6 X10*3/uL (4.8-10.8)
[2025-05-29 15:10] LABS: Estimated Average Glucose 97 mg/dL
[2025-05-29 15:21] LABS: Alanine Aminotransferase 38 U/L (0-40); Albumin Level 4.8 g/dL (3.5-5.0); Alkaline Phosphatase 115 U/L (39-117); Anion Gap 13 (12-20); Aspartate Amino Transferase 28 U/L (5-37); Bilirubin Total 0.7 mg/dL (0.0-1.0); Blood Urea Nitrogen 20 mg/dL (9-16); Calcium 9.8 mg/dL (8.4-10.2); Carbon Dioxide 25 mmol/L (22-29); Chloride 107 mmol/L (96-108); Cholesterol 181 mg/dL (<200); Estimated Glomerular Filt Rate > 60; Glucose Random 92 mg/dL (60-115); HDL Cholesterol 44 mg/dL (>40); LDL Cholesterol Calculated 113 mg/dL (<100); Potassium 4.2 mmol/L (3.3-5.1); Sodium 141 mmol/L (135-145); Total Protein 7.8 g/dL (6.5-8.0); Triglycerides 120 mg/dL (<150)
[2025-05-29 15:27] LABS: PSA,Total (Free>4and<10) 0.38 ng/mL (0.00-4.00)
[2025-05-29 15:41] LABS: TSH reflex Free T4 1.61 uIU/mL (0.32-4.0)
== END 2025-05-29 10:44 | disposition home or self-care (01) ==
LOC: HO.CHCLDS 10:43
PROVIDERS: Visit Provider Internal Medicine
DX: Z12.5 Encounter for screening for malignant neoplasm of prostate (principal); Z13.1 Encounter for screening for diabetes mellitus; I10 Essential (primary) hypertension
CPT/HCPCS: 36415; 80053; 80061; 83036; 84153; 84443; 85025